=== PATIENT | male | born 1945 | race Caucasian/White ===

== ENCOUNTER 2019-02-11 18:35 | Emergency (ER) | payer MEDICARE ==
[~2019-02-11] VITALS: Ht 177.8 cm; Wt 83.0 kg
[2019-02-11 18:38] VITALS: BP 130/79
--- NOTE | 2019-02-11 19:00 | NUR ---
THIS IS A 73 YO MALE WHO PRESENTS TO THE ER C/O FOREIGN BODY AFTER EATING HAMBURGER ON THURSDAY. PT HAS CONFIRMED FB FROM HOSPITAL IN [place]. PT HAS A GARGLING NOISE TO SPEECH THAT IS "DIFFERENT" PER GIRLFRIEND AND PT. PT STATES HE WAS UNABLE TO DRINK WATER PRIOR TO GOING TO HOPSITAL IN [place] BUT WAS ABLE TO KEEP DOWN WATER IN CAR ON THE WAY TO [place]. PT TOLERATED A DIET SPRITE W/O DIFFICULTY. NO COUGHING NOTED AFTERWARDS. RESP EVEN AND UNLABORED. PT ON CONT BP AND O2 MONITORS. CALL LIGHT WITHIN REACH. WILL CONT TO MONITOR PT.
--- NOTE | 2019-02-11 19:24 | NUR ---
Pt report from [facility]. Pt moved to T2 for endoscopy to remove FO.
[2019-02-11] MEDS ORDERED: ALLO300T PO (19:25)
[2019-02-11] MEDS ORDERED: FERR324T5 PO (19:25)
[2019-02-11] MEDS ORDERED: FINA5TAB4 PO (19:25)
[2019-02-11] MEDS ORDERED: SIMV40TA3 PO (19:25)
[2019-02-11] MEDS ORDERED: TAMS-11 PO (19:25)
[2019-02-11] MEDS ORDERED: BUDE10.2 PO (19:25)
[2019-02-11] MEDS ORDERED: DULA1.5P SQ (19:25)
[2019-02-11] MEDS ORDERED: EMPA10TA PO (19:25)
[2019-02-11] MEDS ORDERED: ALBU18HF INH (19:25)
--- NOTE | 2019-02-11 19:25 | NUR ---
REPORT TO SELAM HARRIS WHO ASSUMED CARE OF PT.
[2019-02-11] MEDS ORDERED: PROPOFOL 10 MG/ML, 20ML IVPush ONE (19:30)
--- NOTE | 2019-02-11 19:37 | NUR ---
Pt able to tolerate own secretions and states successfully drank "a lot" of water and sprite earlier. Pt denies any discomfort at this time. Awaiting gi client experience consultant assessment. no needs from pt at this time.
--- NOTE | 2019-02-11 19:38 | NUR ---
Pt baseline on 4 L nc from copd.
[2019-02-11] MEDS ORDERED: PROPOFOL 10 MG/ML, 20ML ONE (20:11)
--- NOTE | 2019-02-11 20:41 | NUR ---
Pt procedure initiated at 2029. Consent signed prior. Suction and bvm in place. Code care close by. All monitoring in place and vitals set to q5 minutes. Pt tolerated procedure and procedure end @2034. Gi specalist states pt "passed the foreign body". Pt at baseline at this time. All monitoring remains intact. Vss. Vitals printed and placed on sedation checklist.
--- NOTE | 2019-02-11 20:41 | NUR ---
WASTED 140MG PROPOFOL WITH KIMBERLY DOSS IN MED ROOM
== END 2019-02-11 21:04 | disposition home or self-care (01) ==
LOC: ED 20:58
DX: T18.128A Food in esophagus causing other injury, initial encounter (principal); K22.2 Esophageal obstruction; E11.9 Type 2 diabetes mellitus without complications; J44.9 Chronic obstructive pulmonary disease, unspecified; Z87.891 Personal history of nicotine dependence; X58.XXXA Exposure to other specified factors, initial encounter; Y93.89 Activity, other specified; Y92.89 Other specified places as the place of occurrence of the external cause; Y99.8 Other external cause status
CPT/HCPCS: 99285